=== PATIENT | male | born 1995 | race Two or more races ===

== ENCOUNTER 2017-12-21 19:00 | Emergency (ER) | payer SELFPAY ==
[~2017-12-21] VITALS: Ht 170.2 cm; Wt 72.6 kg
[2017-12-21 20:20] LABS: Nucleated Red Blood Cells % 0.1 %
[2017-12-21 20:38] LABS: Albumin 3.5 g/dL (3.4-5.0); BUN/Creatinine Ratio 13.6; Basophils # (auto) 0 uL; Basophils % (auto) 0.6 % (0.0-2.0); Bilirubin, Total 0.3 mg/dL (0.2-1.0); Calcium 7.3 mg/dL (8.5-10.1); Eosinophils # (auto) 0.2 uL; Eosinophils % (auto) 2.8 % (0.0-7.0); Hematocrit 40.9 % (41.0-53.0); Hemoglobin 14.1 g/dL (13.5-17.5); Lymphocytes # (auto) 1.8 uL; Lymphocytes % (auto) 26.3 % (10.0-50.0); Mean Corpuscular Hemoglobin 30.5 pg (28.0-32.0); Mean Corpuscular Hgb Conc. 34.4 g/dL (32.0-36.0); Mean Corpuscular Volume 88.7 fL (80.0-100.0); Monocytes # (auto) 0.5 uL; Monocytes % (auto) 7.8 % (0.0-12.0); Neutrophils # (auto) 4.4 uL; Neutrophils % (auto) 62.5 % (37.0-80.0); Platelet Count (auto) 158 10^3/uL (140-450); Potassium 3.1 mmol/L (3.5-5.1); Red Blood Cells 4.62 10^6/uL (4.5-5.90); Red Cell Distribution Width 14.7 % (11.8-14.3); Total Protein 6.6 g/dL (6.4-8.2)
[2017-12-21 21:22] VITALS: BP 116/61
[2017-12-21 22:09] LABS: Amphetamine Screen, Urine NEGATIVE (NEGATIVE); Barbiturate Scree,Urine NEGATIVE (NEGATIVE); Benzodiazephine Screen, Urine POSITIVE (NEGATIVE); Cannabinoid Screen, Urine NEGATIVE (NEGATIVE); Cocaine Screen, Urine NEGATIVE (NEGATIVE); Opiate Scree,Urine NEGATIVE (NEGATIVE); Phencyclidine Screen, Urine NEGATIVE (NEGATIVE)
== END 2017-12-22 01:22 | disposition home or self-care (01) ==
LOC: EDBD 19:00 → ER 19:09
DX: S01.81XA Laceration without foreign body of other part of head, initial encounter (principal); G92 Toxic encephalopathy; F10.120 Alcohol abuse with intoxication, uncomplicated; F17.210 Nicotine dependence, cigarettes, uncomplicated; Y04.0XXA Assault by unarmed brawl or fight, initial encounter; Y93.89 Activity, other specified; Y99.8 Other external cause status; Y92.89 Other specified places as the place of occurrence of the external cause
CPT/HCPCS: 12013; 36415; 70450; 80053; 80307; 80320; 85025; 99285; J7030

== ENCOUNTER 2024-05-03 22:54 | Emergency (ER) | payer MEDICAID, OTHER ==
[~2024-05-03] VITALS: Ht 172.7 cm; Wt 81.5 kg
[2024-05-03 22:58] VITALS: BP 148/89; PULSE 81; RESP 18; O2SAT 98
[2024-05-04] MEDS ORDERED: AMOX875T4 PO (18:19)
[2024-05-04] MEDS ORDERED: ACET500T58 PO (18:19)
== END 2024-05-03 23:06 | disposition left against medical advice (07) ==
LOC: EDBD 22:54 → ER 22:54
DX: R55 Syncope and collapse (principal); Z53.21 Procedure and treatment not carried out due to patient leaving prior to being seen by health care provider

== ENCOUNTER 2024-05-04 16:42 | Emergency (ER) | payer MEDICAID ==
[~2024-05-04] VITALS: Ht 172.7 cm; Wt 75.9 kg
[2024-05-04] MEDS ORDERED: ACET500T58 PO (18:19)
[2024-05-04] MEDS ORDERED: AMOX875T4 PO (18:19)
[2024-05-04 18:28] VITALS: BP 145/92; PULSE 82; RESP 16; TEMP 98.2; O2SAT 100
== END 2024-05-04 18:27 | disposition home or self-care (01) ==
LOC: ER 16:42
DX: T59.0X1A Toxic effect of nitrogen oxides, accidental (unintentional), initial encounter (principal); K12.2 Cellulitis and abscess of mouth; F17.210 Nicotine dependence, cigarettes, uncomplicated; Z98.890 Other specified postprocedural states; Z79.899 Other long term (current) drug therapy; Y92.89 Other specified places as the place of occurrence of the external cause
CPT/HCPCS: 71046